=== PATIENT | female | born 2000 | race Hispanic/Latino ===

== ENCOUNTER 2023-03-26 14:53 | Emergency (ER) | payer SELFPAY ==
[~2023-03-26] VITALS: Ht 160 cm; Wt 73.7 kg
[2023-03-26] MEDS ORDERED: diphenhydrAMINE 50MG CAP PO ONE (20:05)
[2023-03-26] MEDS ORDERED: FAMOTIDINE 20 MG TAB PO ONE (20:05)
[2023-03-26] MEDS ORDERED: CETI10TA4 PO (20:07)
[2023-03-26] MEDS ORDERED: HYDR25OIN TOP (20:07)
[2023-03-26 20:24] VITALS: BP 106/62; TEMP 97.9; O2SAT 99
== END 2023-03-26 20:22 | disposition home or self-care (01) ==
LOC: M ED 14:53
DX: L50.9 Urticaria, unspecified (principal); Z79.52 Long term (current) use of systemic steroids; Z79.899 Other long term (current) drug therapy